=== PATIENT | male | born 1955 | race Caucasian/White ===

== ENCOUNTER 2016-11-07 21:01 | Emergency (ER) | payer OTHER ==
[~2016-11-07] VITALS: Ht 177.8 cm; Wt 98.1 kg
[~2016-11-07 21:01] MED LIST: COEN1CAP28 PO; CYAN100020 PO; GLC5 PO; LISI20TA3 PO; LPR50X PO; METF1000 PO; OMEGCAP2 PO; PSYL0.524 PO; ZCR40 PO
[2016-11-07 21:05] VITALS: TEMP 36.7; Ht 177.8 cm; Wt 98.1 kg
[2016-11-07 21:20] VITALS: O2SAT 96
[2016-11-07 21:27] LABS: HEMATOCRIT 43.2 % (42-52); MEAN CELL VOLUME 86.7 fL (80-100); MEAN CORPUSCULAR HEMOGLOBIN 31.1 pg (25-34); MEAN CORPUSCULAR HGB CONC 35.9 g/dl (32-36); MEAN PLATELET VOLUME 9.9 fL (7.4-10.4); PLATELET COUNT 212 K/uL (130-400); RED BLOOD COUNT 4.98 M/uL (4.7-6.1); WHITE BLOOD COUNT 5.77 K/uL (4.8-10.8)
[2016-11-07 21:36] LABS: PARTIAL THROMBOPLASTIN RATIO 1.1; PROTHROMBIN TIME (PATIENT) 10.6 SECONDS (9.0-12.0)
--- NOTE | 2016-11-07 21:45 | DIAGNOSTIC IMAGING REPORT ---
SINGLE VIEW CHEST CLINICAL HISTORY: Atypical chest pain. FINDINGS: 2 AP, portable, upright chest radiographs are compared to study dated 12/14/2013. The examination is degraded by portable technique and patient rotation. The heart is top normal for projection. The mediastinal contour is within normal limits. There is minimal left basilar atelectasis. The lungs and pleural spaces are otherwise clear. No pneumothorax is seen. The bony thorax is grossly intact. IMPRESSION: No active disease in the chest. Electronically signed by: Israel Peraza M.D. 11/07/2016 9:44 PM Dictated Date/Time: 11/07/2016 9:43 PM
[2016-11-07 21:47] LABS: ALB/GLOB RATIO 1.2 (0.9-2); BUN/CREATININE RATIO 16.5 (10-20); CKMB/CK RATIO 1.9 (0-3.0); CREATININE 1.3 mg/dl (0.60-1.40); POTASSIUM 4.3 mmol/L (3.5-5.1)
[2016-11-07 21:50] LABS: CALCIUM 9.2 mg/dl (8.5-10.1)
[2016-11-07] MEDS ORDERED: LISI-461 PO (22:07)
[2016-11-07] MEDS ORDERED: ASPI81TA28 PO (22:07)
[2016-11-07] MEDS ORDERED: SIMV40TA4 PO (22:07)
[2016-11-07] MEDS ORDERED: KRIL1000 PO (22:07)
[2016-11-07] MEDS ORDERED: INSDGIPEN SC (22:07)
[2016-11-07] MEDS ORDERED: COEN1CAP37 PO (22:07)
[2016-11-07 22:31] VITALS: BP 120/62
[2016-11-07 22:36] VITALS: PULSE 72; O2SAT 95
--- NOTE | 2016-11-08 00:18 | EMERGENCY ROOM VISIT NOTE ---
History Report prepared by Rafia: Javier Rao Under the Supervision of: Dr. Timothy Cotto M.D. First contact with patient: 21:43 Chief Complaint: CHEST PAIN Stated Complaint: POSSIBLE MUSCLE PAIN IN CHEST Nursing Triage Summary: Pt reports he is having left sided chest pain that radiates into left sided flank/abdomen that started 2 days ago and worsened today. Pt states the pain is only present with movement or sneezing. No pain at rest. pt also complaining of right shoulder pain when arm raised. pt reports he fell 2 weeks ago and was lifting heavy boxes this weekend. Pt states "i think the pain is muscular, but I want to make sure". History of Present Illness The patient is a 60 year old male who presents to the Emergency Room with complaints of persistent left sided chest pain starting about 2 days ago. The pain had initially started over the nipple line radiating towards the upper chest. He had a sudden onset of pain. He denies any strenuous activities. Today , he started having pain radiation down to the abdomen. He has worsening pain with sneezing and movement. He has a history of heart attack and denies any similar symptoms. About 3 weeks ago, the patient slipped and fell down with his laptop in his hand. About a week later, he started having right arm pain with lifting heavy objects. A few days ago, he noticed a minor bruise on the right arm. Pt denies LOC, headache, fevers, chills, diaphoresis, visual changes, neck pain , breathing difficulties, nausea, vomiting, abdominal pain, back pain, melena, hematochezia, urinary symptoms, numbness, weakness, lymphadenopathy, rash, or other complaints. Source of History: patient Onset: about 2 days ago Position: chest (left) Timing: other (persistent) Modifying Factors (Worsening): movement, other (sneezing) Review of Systems See HPI for pertinent positives and negatives. A total of ten systems were reviewed and were otherwise negative. Past Medical & Surgical Medical Problems: (1) Diabetes mellitus (2) Hypercholesteremia (3) Prostate cancer (4) Prostatitis Surgical Problems: (1) H/O arthroscopy of knee (2) Stented coronary artery Family History Heart disease Social History Smoking Status: Never Smoker Drug Use: none Marital Status: single Housing Status: lives alone Occupation Status: employed Current/Historical Medications Scheduled Aspirin (Aspirin Ec), 81 MG PO DAILY Coenzyme Q10 (Ubidecarenone) (Co Q-10), 200 MG PO DAILY Cyanocobalamin (Vitamin B12), 1,000 MCG PO DAILY Glipizide (Glipizide), 5 MG PO BID Insulin Glargine (Lantus Solostar), 37 UNITS SC QPM Krill Oil (Krill Oil), 1 CAP PO BID Lisinopril (Zestril), 10 MG PO DAILY Metformin Hcl (Glucophage), 1,000 MG PO BID Metoprolol Tartrate (Metoprolol Tartrate), 50 MG PO BID Simvastatin (Zocor), 40 MG PO HS Allergies Coded Allergies: Sulfites (Verified Allergy, Severe, chest tightening, 12/27/13) Potassium Bisulfite (Verified Allergy, Unknown, `, 03/24/12) Potassium Metabisulfite (Verified Allergy, Unknown, `, 03/24/12) Sodium Bisulfate (Verified Allergy, Unknown, `, 03/24/12) Sodium Bisulfite (Verified Allergy, Unknown, `, 03/24/12) Physical Exam Vital Signs Date Time Temp Pulse Resp B/P (MAP) Pulse Ox O2 Delivery O2 Flow Rate FiO2 11/07/16 22:36 72 23 95 11/07/16 22:31 120/62 11/07/16 22:30 129/59 11/07/16 22:06 70 29 96 11/07/16 22:01 70 24 95 11/07/16 21:32 128/74 11/07/16 21:31 67 23 95 11/07/16 21:20 96 Room Air 11/07/16 21:17 69 11/07/16 21:15 96 Room Air 11/07/16 21:14 151/76 11/07/16 21:05 36.7 77 18 137/83 95 Room Air Physical Exam GENERAL: Awake, alert, well-appearing, in no distress HENT: Normocephalic, atraumatic. Oropharynx unremarkable. EYES: Normal conjunctiva. Sclera non-icteric. NECK: Supple. No nuchal rigidity. FROM. No JVD. RESPIRATORY: Clear to auscultation. CARDIAC: Regular rate, normal rhythm. Extremities warm and well perfused. Pulses equal. ABDOMEN: Soft, non-distended. No tenderness to palpation. No rebound or guarding. No masses. RECTAL: Deferred. MUSCULOSKELETAL: Chest examination reveals no tenderness. The back is symmetrical on inspection without obvious abnormality. There is no CVA tenderness to palpation. No joint edema. Healing abrasions on the elbows, resolving contusions to the right arm. LOWER EXTREMITIES: Calves are equal size bilaterally and non-tender. No edema. No discoloration. NEURO: Normal sensorium. No sensory or motor deficits noted. SKIN: No rash or jaundice noted. Medical Decision & Procedures ER Provider Diagnostic Interpretation: X-ray: Per my interpretation, radiologist review. SINGLE VIEW CHEST CLINICAL HISTORY: Atypical chest pain. FINDINGS: 2 AP, portable, upright chest radiographs are compared to study dated 12/14/2013. The examination is degraded by portable technique and patient rotation. The heart is top normal for projection. The mediastinal contour is within normal limits. There is minimal left basilar atelectasis. The lungs and pleural spaces are otherwise clear. No pneumothorax is seen. The bony thorax is grossly intact. IMPRESSION: No active disease in the chest. Electronically signed by: Israel Peraza M.D. 11/07/2016 9:44 PM Dictated Date/Time: 11/07/2016 9:43 PM Laboratory Results 11/07/16 21:15 11/07/16 21:15 Test 11/07/16 21:15 11/07/16 21:21 Red Blood Count 4.98 M/uL (4.7-6.1) Mean Corpuscular Volume 86.7 fL (80-100) Mean Corpuscular Hemoglobin 31.1 pg (25-34) Mean Corpuscular Hemoglobin Concent 35.9 g/dl (32-36) RDW Standard Deviation 43.3 fL (36.4-46.3) RDW Coefficient of Variation 13.7 % (11.5-14.5) Mean Platelet Volume 9.9 fL (7.4-10.4) Prothrombin Time 10.6 SECONDS (9.0-12.0) Prothromb Time International Ratio 1.0 (0.9-1.1) Activated Partial Thromboplast Time 28.0 SECONDS (21.0-31.0) Partial Thromboplastin Ratio 1.1 D-Dimer < 190 ug/L FEU (0-500) Anion Gap 8.0 mmol/L (3-11) Est Creatinine Clear Calc Drug Dose 69.2 ml/min Estimated GFR () 67.8 Estimated GFR (Non- 58.5 BUN/Creatinine Ratio 16.5 (10-20) Calcium Level 9.2 mg/dl (8.5-10.1) Total Bilirubin 0.4 mg/dl (0.2-1) Aspartate Amino Transf (AST/SGOT) 22 U/L (15-37) Alanine Aminotransferase (ALT/SGPT) 44 U/L (12-78) Alkaline Phosphatase 78 U/L (45-117) Total Creatine Kinase 147 U/L (39-308) Creatine Kinase MB 2.8 ng/ml (0.5-3.6) Creatine Kinase MB Ratio 1.9 (0-3.0) Total Protein 7.2 gm/dl (6.4-8.2) Albumin 3.9 gm/dl (3.4-5.0) Globulin 3.3 gm/dl (2.5-4.0) Albumin/Globulin Ratio 1.2 (0.9-2) Lipase 146 U/L (73-393) Chemistry Specimen Hemolysis Bedside Troponin I 0.000 ng/ml (0-0.045) Laboratory results reviewed by me ECG Indication: chest pain Rate (beats per minute): 64 Rhythm: normal sinus Findings: no acute ischemic change, no ectopy, other (Early repolarization) Comparison ECG Date: December 27, 2013 Change: no significant change ED Course 3: The patient was evaluated in room C09. A complete history and physical exam was performed. Blood pressure screening: Patient was found to have an elevated blood pressure and was referred to their primary doctor for recheck and further treatment. Medication Reconciliation: I attest that I have personally reviewed the patient' s current medication list 2220: I reevaluated the patient. Discussed results and discharge instructions: He verbalized understanding and agreement. The patient is ready for discharge. Medical Decision Triage Nursing notes reviewed. The patient's presentation and history were concerning for chest pain. Etiologies such as musculoskeletal, pleurisy, contusion, cardiac ischemia, aortic dissection, pulmonary embolism, pneumonia, pneumothorax,, infections, gastrointestinal, as well as others were entertained. The patient was evaluated. Clinically was doing well. He had some minor abrasions and small contusions. There is no gross bony deformity in the arms. No indication for x-ray imaging. No signs of infection. The patient underwent a cardiopulmonary workup. This was unremarkable. His CBC, chemistry panel, LFTs, lipase, cardiac markers, and d-dimer were unremarkable. Chest imaging was unremarkable. ECG was unremarkable. No ischemia. The patient has had constant discomfort in his chest for several days. There is no indication of cardiac ischemia. No pericarditis. Clinically the patient is doing very well. He was reassured by the findings. He declined any analgesia. The patient will need follow-up regarding his blood pressure and diabetes. His physician just retired. The patient was referred to [facility] internal medicine. I suspect a musculoskeletal source or possibly pleurisy. By the evaluation outlined above other emergent etiologies such as those listed in the differential, as well as others, were deemed relatively unlikely. The patient was informed about the findings as listed above. All questions were answered and he was pleased with the treatment. Return instructions were outlined and the patient was discharged in stable condition. The patient was referred to internal medicine for follow-up for a recheck of the current condition. Impression Primary Impression: Left sided chest pain Scribe Attestation The scribe's documentation has been prepared under my direction and personally reviewed by me in its entirety. I confirm that the note above accurately reflects all work, treatment, procedures, and medical decision making performed by me. Departure Information Dispostion Home / Self-Care Referrals Taj Adhikari M.D. (PCP) Forms HOME CARE DOCUMENTATION FORM, IMPORTANT VISIT INFORMATION Patient Instructions My [facility] Additional Instructions CHEST PAIN INSTRUCTIONS: Ibuprofen(Motrin, Advil) may be used for fever or pain. Use 600mg every six hours as needed. Take with food. Avoid using more than 2400mg in a 24 hour period. Do not use 2400mg per day for more than three consecutive days without physician direction. Prolonged inappropriate use can lead to stomach upset or ulcers. (AND/OR) Acetaminophen(Tylenol) may be used for fever or pain. Use 1000mg every six hours as needed. Avoid using more than 4000mg in a 24 hour period. Rest and drink plenty of fluids as tolerated. Continue current medications. Avoid strenuous activities and anything that worsens your pain. Resume normal activities once your symptoms resolve. Return to the ER immediately for worsening or persistent chest pain, abdominal pain, vomiting, fevers, chest pains, difficulty breathing, worsening of your condition, or as needed. Follow up with [facility] internal medicine, [phone] for a recheck of your current condition.
== END 2016-11-07 22:53 | disposition home or self-care (01) ==
LOC: C.EDB 21:05 → C.EDC 22:53
DX: R07.9 Chest pain, unspecified (principal); E11.9 Type 2 diabetes mellitus without complications; E78.5 Hyperlipidemia, unspecified; I25.2 Old myocardial infarction; Z85.46 Personal history of malignant neoplasm of prostate; Z95.5 Presence of coronary angioplasty implant and graft; Z79.82 Long term (current) use of aspirin; Z79.4 Long term (current) use of insulin; Z79.84 Long term (current) use of oral hypoglycemic drugs

== ENCOUNTER → 2017-05-30 | Outpatient (CLI) | payer OTHER ==
[~2017-05-30] MED LIST changes: +ASPI81TA28 PO; -COEN1CAP28 PO; +COEN1CAP37 PO; +INSDGIPEN SC; +KRIL1000 PO; +LISI-461 PO; -LISI20TA3 PO; -OMEGCAP2 PO; -PSYL0.524 PO; +SIMV40TA4 PO; -ZCR40 PO
[2017-05-30 11:23] LABS: ALT/SGPT 40 U/L (12-78); BLOOD UREA NITROGEN 27 mg/dl (7-18); BUN/CREATININE RATIO 24.1 (10-20); CARBON DIOXIDE 27 mmol/L (21-32); CHLORIDE 105 mmol/L (98-107); CHOLESTEROL 136 mg/dl (0-200); CREATININE 1.12 mg/dl (0.60-1.40); GLUCOSE 147 mg/dl (70-99); POTASSIUM 4.1 mmol/L (3.5-5.1); SODIUM 137 mmol/L (136-145); TRIGLYCERIDES 119 mg/dl (0-150); VERY LOW DENSITY LIPOPROT CALC 24 mg/dl
[2017-05-30 11:26] LABS: ALB/GLOB RATIO 1.2 (0.9-2); ALKALINE PHOSPHATASE 80 U/L (45-117); AST/SGOT 21 U/L (15-37); CHOLESTEROL/HDL RATIO 3.4; HDL CHOLESTEROL 40 mg/dl; LDL CHOLESTEROL CALCULATED 72 mg/dl
== END | disposition home or self-care (01) ==
LOC: C.LAB 10:09
PROVIDERS: ATTEND Internal Medicine Interventional Cardiology
DX: E78.5 Hyperlipidemia, unspecified (principal)

== ENCOUNTER 2018-01-22 13:55 | Emergency (ER) | payer OTHER ==
[~2018-01-22] VITALS: Ht 177.8 cm; Wt 98.4 kg
[~2018-01-22 13:55] MED LIST changes: -ASPI81TA28 PO; -COEN1CAP37 PO; -INSDGIPEN SC; -KRIL1000 PO; -SIMV40TA4 PO
[2018-01-22 13:59] VITALS: TEMP 36.5; Ht 177.8 cm; Wt 98.4 kg
[2018-01-22] MEDS ORDERED: ACETAMINOPHEN 500 MG TAB PO STA (14:09)
[2018-01-22 14:22] LABS: HEMOGLOBIN 15.6 g/dL (14.0-18.0); MEAN CELL VOLUME 87.4 fL (80-100); MEAN CORPUSCULAR HEMOGLOBIN 30.3 pg (25-34); MEAN CORPUSCULAR HGB CONC 34.7 g/dl (32-36); MEAN PLATELET VOLUME 9.7 fL (7.4-10.4); PLATELET COUNT 199 K/uL (130-400); RED CELL DISTRIBUTION WIDTH CV 13.6 % (11.5-14.5); RED CELL DISTRIBUTION WIDTH SD 43.4 fL (36.4-46.3); WHITE BLOOD COUNT 6.14 K/uL (4.8-10.8)
--- NOTE | 2018-01-22 14:27 | DIAGNOSTIC IMAGING REPORT ---
CHEST ONE VIEW PORTABLE CLINICAL HISTORY: 62 years-old Male presenting with CHEST PAIN. TECHNIQUE: Portable upright AP view of the chest was obtained. COMPARISON: 11/07/2016. FINDINGS: Cardiomediastinal silhouette normal. Lungs and pleural spaces clear. Degenerative changes of the thoracic spine. Degenerative changes of the acromioclavicular joints. Upper abdomen normal. IMPRESSION: 1. No acute cardiopulmonary disease. Electronically signed by: Samuel Dumont M.D. 01/22/2018 2:26 PM Dictated Date/Time: 01/22/2018 2:25 PM
[2018-01-22 14:30] LABS: PTT PATIENT 27.3 SECONDS (21.0-31.0)
[2018-01-22 14:40] LABS: CALCIUM 9.1 mg/dl (8.5-10.1); CREATININE 1.35 mg/dl (0.60-1.40); POTASSIUM 4.2 mmol/L (3.5-5.1)
[2018-01-22] MEDS ORDERED: LISI-725 PO (15:40)
[2018-01-22 16:24] VITALS: BP 123/80; PULSE 71; O2SAT 97
--- NOTE | 2018-01-22 18:22 | EMERGENCY ROOM VISIT NOTE ---
History Report prepared by Rafia: Lizabeth Murphy Under the Supervision of: Dr. Israel Trimble M.D. First contact with patient: 14:07 Chief Complaint: CHEST PAIN Stated Complaint: TWINGE IN LEFT CHEST History of Present Illness The patient is a 62 year old male who presents to the Emergency Room with complaints of an intermittent "twinge" on the left side of his chest that began about 30 minutes prior to arrival. The patient states that this "twinge" is uncomfortable but not painful and states that it only lasts for as long as his heart pumps. The patient denies any chest pain with exertion recently. The patient also states that he was sitting at his desk when this "twinge" came on. The patient denies this radiating to anywhere else in his body. The patient states that this is worsened with movement. The patient states that in 2011, he had two cardiac stents placed The patient states that he takes aspirin, lisinopril, and metoprolol. He states that he has an appointment with his park guard Dr. Mendez on February 04, in 13 days because he has been waking up recently with discomfort in his chest. Source of History: patient Onset: 30 mintues prior to arrival Position: chest (left) Quality: other ("twinge" ) Timing: intermittent Modifying Factors (Worsening): movement Associated Symptoms: No chest pain (with exertion) Review of Systems See HPI for pertinent positives & negatives. A total of 10 systems reviewed and were otherwise negative. Past Medical & Surgical Medical Problems: (1) Diabetes mellitus (2) Hypercholesteremia (3) Prostate cancer (4) Prostatitis Surgical Problems: (1) H/O arthroscopy of knee (2) Stented coronary artery Family History Heart disease Social History Smoking Status: Never Smoker Drug Use: none Marital Status: single Housing Status: lives alone Occupation Status: employed Current/Historical Medications Scheduled Aspirin (Aspirin Ec), 81 MG PO DAILY Coenzyme Q10 (Ubidecarenone) (Co Q-10), 200 MG PO DAILY Cyanocobalamin (Vitamin B12), 1,000 MCG PO DAILY Glipizide (Glipizide), 5 MG PO BID Insulin Glargine (Lantus Solostar), 43 UNITS SC QPM Krill Oil (Krill Oil), 1 CAP PO BID Lisinopril (Zestril), 20 MG PO DAILY Metformin Hcl (Glucophage), 1,000 MG PO BID Metoprolol Tartrate (Metoprolol Tartrate), 50 MG PO BID Simvastatin (Zocor), 40 MG PO HS Allergies Coded Allergies: Sulfites (Verified Allergy, Severe, chest tightening, 12/27/13) Potassium Bisulfite (Verified Allergy, Unknown, `, 03/24/12) Potassium Metabisulfite (Verified Allergy, Unknown, `, 03/24/12) Sodium Bisulfate (Verified Allergy, Unknown, `, 03/24/12) Sodium Bisulfite (Verified Allergy, Unknown, `, 03/24/12) Physical Exam Vital Signs Date Time Temp Pulse Resp B/P (MAP) Pulse Ox O2 Delivery O2 Flow Rate FiO2 01/22/18 16:24 71 18 123/80 97 Room Air 01/22/18 15:05 74 18 131/80 95 Room Air 01/22/18 14:33 Room Air 01/22/18 14:10 76 01/22/18 13:59 36.5 76 20 149/89 96 Room Air Physical Exam GENERAL: Patient is in no acute distress. HEENT: No acute trauma, normocephalic atraumatic, mucous membranes moist, no nasal congestion, no scleral icterus. NECK: No stridor, no adenopathy, no meningismus, trachea is midline. LUNGS: Clear to auscultation bilaterally, no wheeze, no rhonchi, breath sounds equal. HEART: Without murmurs gallops or rubs, regular rate and rhythm. ABDOMEN: Soft, nontender, bowel sounds positive, no hernias, no peritonitis. EXTREMITIES: No cyanosis or edema, full range of motion of all the joints without pain or difficulty, no signs for acute trauma. NEUROLOGIC: Oriented x 3, no acute motor or sensory deficits, no focal weakness. SKIN: No rash, no jaundice, no diaphoresis. CHEST: Non-tender chest wall. Medical Decision & Procedures ER Provider Diagnostic Interpretation: Radiology results as stated below per my review and radiologist interpretation: CHEST ONE VIEW PORTABLE CLINICAL HISTORY: 62 years-old Male presenting with CHEST PAIN. TECHNIQUE: Portable upright AP view of the chest was obtained. COMPARISON: 11/07/2016. FINDINGS: Cardiomediastinal silhouette normal. Lungs and pleural spaces clear. Degenerative changes of the thoracic spine. Degenerative changes of the acromioclavicular joints. Upper abdomen normal. IMPRESSION: 1. No acute cardiopulmonary disease. Electronically signed by: Samuel Dumont M.D. 01/22/2018 2:26 PM Dictated Date/Time: 01/22/2018 2:25 PM Laboratory Results 01/22/18 14:10 01/22/18 14:10 Test 01/22/18 14:10 01/22/18 16:31 Red Blood Count 5.15 M/uL (4.7-6.1) Mean Corpuscular Volume 87.4 fL (80-100) Mean Corpuscular Hemoglobin 30.3 pg (25-34) Mean Corpuscular Hemoglobin Concent 34.7 g/dl (32-36) RDW Standard Deviation 43.4 fL (36.4-46.3) RDW Coefficient of Variation 13.6 % (11.5-14.5) Mean Platelet Volume 9.7 fL (7.4-10.4) Prothrombin Time 10.5 SECONDS (9.0-12.0) Prothromb Time International Ratio 1.0 (0.9-1.1) Activated Partial Thromboplast Time 27.3 SECONDS (21.0-31.0) Partial Thromboplastin Ratio 1.1 Anion Gap 7.0 mmol/L (3-11) Est Creatinine Clear Calc Drug Dose 65.0 ml/min Estimated GFR () 63.9 Estimated GFR (Non- 55.1 BUN/Creatinine Ratio 13.9 (10-20) Calcium Level 9.1 mg/dl (8.5-10.1) Bedside Troponin I < 0.030 ng/ml (0-0.045) Laboratory results reviewed by me. ECG Per My Interpretation Indication: chest pain Rate (beats per minute): 73 Rhythm: normal sinus Findings: other (no ST elevation, no PVCs) ED Course 1408: The patient was evaluated in room A12B. A complete history and physical exam was performed. 1415: I spoke with Dr. Mendez-Cardiology who will check on the patient. 1515: I spoke with Dr. Mendez who said that if the repeat troponin is normal, the patient can go home. 1536: I spoke with the patient who is good with the plan. 1647: Reevaluated the patient. Discussed results and discharge instructions: He verbalized understanding and agreement. The patient is ready for discharge. Medical Decision Possible differential diagnoses include: Musculoskeletal chest pain, NV, aortic dissection, PE, pneumonia, pneumothorax, and pericarditis. There is no leukocytosis or worrisome anemia. No significant electrolyte abnormality or kidney failure. EKG shows a normal sinus rhythm, no acute ischemia. Cardiac enzyme testing 2 is not consistent with acute cardiac injury. Chest film does not show mediastinal widening, pneumonia or pneumothorax. Patient presents with some subtle, short-lived, left-sided chest pain which is worse with certain movements. There has been no exertional chest pain. He has been moving furniture around in his home. His cardiac workup is benign and reassuring. The patient was seen by Dr. Mendez of cardiology. He was felt safe for discharge home. He can follow-up with the outpatient cardiology office. His pain is very likely musculoskeletal. Medication Reconcilliation Current Medication List: was personally reviewed by me Blood Pressure Screening Patient's blood pressure: Elevated blood pressure Blood pressure disposition: Elevated BP felt to be situational Consults Time Called: 1413 Consulting Physician: Dr. Mendez-Cardiology Returned Call: [address] Mendez-Cardiology who will check on the patient. Impression Primary Impression: Left sided chest pain Scribe Attestation The scribe's documentation has been prepared under my direction and personally reviewed by me in its entirety. I confirm that the note above accurately reflects all work, treatment, procedures, and medical decision making performed by me. Departure Information Dispostion Home / Self-Care Referrals No Doctor, Assigned (PCP) Forms Call Back Authorization, HOME CARE DOCUMENTATION FORM, IMPORTANT VISIT INFORMATION Patient Instructions My [facility] Additional Instructions follow with cardiology heart testing today was ok heat to the chest wall may help tylenol for pain return for any worsening symptoms or any exertional symptoms
[2018-01-22] MEDS ORDERED: ASPI81TA28 PO (22:07)
[2018-01-22] MEDS ORDERED: SIMV40TA4 PO (22:07)
[2018-01-22] MEDS ORDERED: INSDGIPEN SC (22:07)
[2018-01-22] MEDS ORDERED: COEN1CAP37 PO (22:07)
[2018-01-22] MEDS ORDERED: KRIL1000 PO (22:07)
== END 2018-01-22 17:01 | disposition home or self-care (01) ==
LOC: C.EDB 13:58 → C.EDA 17:01
DX: R07.9 Chest pain, unspecified (principal); E11.9 Type 2 diabetes mellitus without complications; E78.00 Pure hypercholesterolemia, unspecified; Z85.46 Personal history of malignant neoplasm of prostate; N41.9 Inflammatory disease of prostate, unspecified; Z79.82 Long term (current) use of aspirin; Z79.899 Other long term (current) drug therapy; Z88.2 Allergy status to sulfonamides; Z88.8 Allergy status to other drugs, medicaments and biological substances